=== PATIENT | female | born 1990 | race Caucasian/White ===

== ENCOUNTER 2017-08-17 19:01 | Emergency (ER) | payer OTHER ==
--- NOTE | 2017-08-17 20:08 | ER ---
Nurse's Notes [facility] Name: Olga Almeida Age: 26 yrs Sex: Female : 1990 Arrival Date: 08/17/2017 Time: 19:08 Bed 30 Private MD: Diagnosis: Dermatitis, unspecified Presentation: 08/17 19:09 Presenting complaint: Patient states: that for 2 1/2 weeks something has been biting fc her on the arms, legs and lower back. They are now swollen and itching. Getting worse. Transition of care: patient was not received from another setting of care. Onset of symptoms was July 2017. Risk Assessment: Do you want to hurt yourself or someone else? Patient reports no desire to harm self or others. Care prior to arrival: Anti itch spray. 19:09 Method Of Arrival: Ambulatory fc 19:09 Acuity: NAZIA 4 fc 19:54 Initial Sepsis Screen: Does the patient meet any 2 criteria? No. Patient's initial kr2 sepsis screen is negative. Does the patient have a suspected source of infection? No. Patient's initial sepsis screen is negative. 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 - Social history:: Smoking status: Patient/guardian denies using tobacco. - Ebola Screening: : Patient negative for fever greater than or equal to 101.5 degrees Fahrenheit, and additional compatible Ebola Virus Disease symptoms Patient denies exposure to infectious person Patient denies travel to an Ebola-affected area in the 21 days before illness onset. Screenin:53 Abuse screen: Denies threats or abuse. Denies injuries from another. Nutritional kr2 screening: No deficits noted. Tuberculosis screening: No symptoms or risk factors identified. Fall Risk None identified. Assessment: 19:52 General: Appears in no apparent distress. comfortable, well groomed, well developed, kr2 well nourished, Behavior is calm, cooperative, appropriate for age. Pain: Denies pain. Neuro: Level of Consciousness is awake, alert, obeys commands, Oriented to person, place, time, situation, Appropriate for age. Cardiovascular: Capillary refill < 3 seconds in bilateral fingers Patient's skin is warm and dry. Respiratory: Airway is patent Respiratory effort is even, unlabored, Respiratory pattern is regular, symmetrical. GI: Abdomen is round non-distended. : Denies burning with urination. Derm: Skin is healthy with good turgor, Skin is pink, warm \T\ dry. Rash noted that is red, raised. Musculoskeletal: Circulation, motion, and sensation intact. Vital Signs: 19:12 BP 131 / 71; Pulse 89; Resp 18; Temp 98.6(O); Pulse Ox 97% ; Weight 60.33 kg (R); fc Height 5 ft. 6 in. (167.64 cm) (R); Pain 0/10; 19:12 Body Mass Index 21.47 (60.33 kg, 167.64 cm) ED Course: 19:08 Patient arrived in ED. rg4 19:11 Triage completed. 19:11 Arm band placed on Patient placed in an exam room, on a stretcher. 19:15 Patient has correct armband on for positive identification. Bed in low position. Call kr2 light in reach. Side rails up X 1. Pulse ox on. NIBP on. 19:30 Noman Love MD is Attending Physician. 19:42 Sigrid Avitia, MARTIN is Primary Nurse. kr2 19:53 No provider procedures requiring assistance completed. Patient did not have IV access kr2 during this emergency room visit. 20:08 Edmond Gonzalez MD is Referral Physician. Administered Medications: No medications were administered Outcome: 19:54 Condition: good kr2 20:07 Discharge ordered by . gs 20:12 Discharged to home ambulatory, with family. kr2 20:12 Discharge instructions given to patient, Instructed on discharge instructions, follow up and referral plans. medication usage, Demonstrated understanding of instructions, follow-up care, medications, Prescriptions given X 1. 20:13 Patient left the ED. kr2 Signatures: Mariam Sousa RN RN [place] 4 Noman Love MD MD Sigrid Avitia RN RN kr2
--- NOTE | 2017-08-18 20:13 | EDPHYS ---
Physician Documentation [facility] Name: Olga Almeida Age: 26 yrs Sex: Female : 1990 Arrival Date: 08/17/2017 Time: 19:08 Bed 30 Private MD: ED Physician Noman Love HPI: 08/17 20:19 This 26 yrs old Female presents to ER via Ambulatory with complaints of Rash. gs 20:19 The patient's rash thought to be caused by insect bites, Dermatitis. The rash is gs located on the dorsal aspect of left forearm. The rash is located on the palmar aspect of right forearm. The rash can be described as macular, papular. Onset: The symptoms/episode began/occurred 2 week(s) ago, and became persistent. Associated signs and symptoms: Pertinent negatives: difficulty breathing, fever, swelling of throat. Severity of symptoms: At their worst the symptoms were moderate in the emergency department the symptoms are unchanged. The patient has experienced similar episodes in the past, a few times. 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 - Social history:: Smoking status: Patient/guardian denies using tobacco. - Ebola Screening: : Patient negative for fever greater than or equal to 101.5 degrees Fahrenheit, and additional compatible Ebola Virus Disease symptoms Patient denies exposure to infectious person Patient denies travel to an Ebola-affected area in the 21 days before illness onset. ROS: 20:19 All other systems are negative. gs Exam: 20:19 Head/Face: Normocephalic, atraumatic. Eyes: Pupils equal round and reactive to light, gs extra-ocular motions intact. Lids and lashes normal. Conjunctiva and sclera are non-icteric and not injected. Cornea within normal limits. Periorbital areas with no swelling, redness, or edema. ENT: Nares patent. No nasal discharge, no septal abnormalities noted. Tympanic membranes are normal and external auditory canals are clear. Oropharynx with no redness, swelling, or masses, exudates, or evidence of obstruction, uvula midline. Mucous membranes moist. Neck: Trachea midline, no thyromegaly or masses palpated, and no cervical lymphadenopathy. Supple, full range of motion without nuchal rigidity, or vertebral point tenderness. No Meningismus. Chest/axilla: Normal chest wall appearance and motion. Nontender with no deformity. No lesions are appreciated. Cardiovascular: Regular rate and rhythm with a normal S1 and S2. No gallops, murmurs, or rubs. Normal PMI, no JVD. No pulse deficits. Respiratory: Lungs have equal breath sounds bilaterally, clear to auscultation and percussion. No rales, rhonchi or wheezes noted. No increased work of breathing, no retractions or nasal flaring. Abdomen/GI: Soft, non-tender, with normal bowel sounds. No distension or tympany. No guarding or rebound. No evidence of tenderness throughout. Back: No spinal tenderness. No costovertebral tenderness. Full range of motion. MS/ Extremity: Pulses equal, no cyanosis. Neurovascular intact. Full, normal range of motion. Neuro: Awake and alert, GCS 15, oriented to person, place, time, and situation. Cranial nerves II-XII grossly intact. Motor strength 5/5 in all extremities. Sensory grossly intact. Cerebellar exam normal. Normal gait. 20:19 Constitutional: The patient appears alert, awake. 20:19 Abdomen/GI: Inspection: gravid appearance, is noted. 20:19 Skin: rash a moderate rash is noted, rash can be described as macular, papular, crusting, on the palmar aspect of right forearm and dorsal aspect of left forearm. Vital Signs: 19:12 BP 131 / 71; Pulse 89; Resp 18; Temp 98.6(O); Pulse Ox 97% ; Weight 60.33 kg (R); fc Height 5 ft. 6 in. (167.64 cm) (R); Pain 0/10; 19:12 Body Mass Index 21.47 (60.33 kg, 167.64 cm) fc MDM: 19:55 Patient medically screened. 20:19 Differential diagnosis: allergic reaction, dermatitis, insect bites. Data reviewed: vital signs, nurses notes. ED course: doesn't appear to be scabies not on flexor surfaces will try Benadryl topical steroid cream. Administered Medications: No medications were administered Disposition: 08/17/17 20:07 Discharged to Home. Impression: Dermatitis, unspecified. - Condition is Stable. - Discharge Instructions: Rash. - Prescriptions for Triamcinolone Acetonide 0.5 % Topical Cream - apply very thin layer 1 application by TOPICAL route 2 times per day As needed; 30 gram. - Medication Reconciliation Form, Thank You Letter, Antibiotic Education, Prescription Opioid Use form. - Follow up: Private Physician; When: 2 - 3 days; Reason: Re-evaluation by your physician. Follow up: Edmond Gonzalez MD; When: 2 - 3 days; Reason: Re-evaluation by your physician. Signatures: Mariam Sousa RN RN fc Noman Love MD MD Sigrid Avitia RN RN kr2 Corrections: (The following items were deleted from the chart) 20:08 20:07 08/17/2017 20:07 Discharged to Home. Impression: Dermatitis, unspecified. gs Condition is Stable. Forms are Medication Reconciliation Form, Thank You Letter, Antibiotic Education, Prescription Opioid Use. Follow up: Private Physician; When: 2 - 3 days; Reason: Re-evaluation by your physician. gs 20:13 20:08 08/17/2017 20:07 Discharged to Home. Impression: Dermatitis, unspecified. kr2 Condition is Stable. Discharge Instructions: Rash. Prescriptions for Triamcinolone Acetonide 0.5 % Topical Cream - apply 1 application by TOPICAL route 2 times per day As needed; 30 gram. and Forms are Medication Reconciliation Form, Thank You Letter, Antibiotic Education, Prescription Opioid Use. Follow up: Private Physician; When: 2 - 3 days; Reason: Re-evaluation by your physician. Follow up: Edmond Gonzalez; When: 2 - 3 days; Reason: Re-evaluation by your physician. gs
== END 2017-08-17 20:13 | disposition home or self-care (01) ==
LOC: ER 19:01
DX: L30.9 Dermatitis, unspecified (principal); Z33.1 Pregnant state, incidental
CPT/HCPCS: 99283

== ENCOUNTER 2018-09-05 18:44 | Emergency (ER) | payer OTHER ==
--- NOTE | 2018-09-05 20:25 | ER ---
Nurse's Notes [facility] Name: Olga Anglin Age: 27 yrs Sex: Female : 1990 Arrival Date: 09/05/2018 Time: 18:48 Bed 6 Private MD: Diagnosis: Acute pharyngitis Presentation: 09/05 18:58 Presenting complaint: Patient states: throat pain, possible strep. 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 Transition of care: patient was not received from another setting of care. Onset of symptoms is unknown. Risk Assessment: Do you want to hurt yourself or someone else? Patient reports no desire to harm self or others. Initial Sepsis Screen: Does the patient meet any 2 criteria? No. Patient's initial sepsis screen is negative. Does the patient have a suspected source of infection? No. Patient's initial sepsis screen is negative. Care prior to arrival: None. 18:58 Method Of Arrival: Ambulatory ak1 18:58 Acuity: NAZIA 4 ak1 Triage Assessment: 18:59 General: Appears in no apparent distress. Behavior is calm, cooperative. 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 - Social history:: Smoking status: Patient/guardian denies using tobacco. - Ebola Screening: : No symptoms or risks identified at this time. Screenin:00 Abuse screen: Denies threats or abuse. Nutritional screening: No deficits noted. ea Tuberculosis screening: No symptoms or risk factors identified. Fall Risk None identified. Assessment: 19:58 General: Appears in no apparent distress. Behavior is calm, cooperative, appropriate ea for age. Pain: Complains of pain in throat. Cardiovascular: Patient's skin is warm and dry. Respiratory: Airway is patent Respiratory effort is even, unlabored, Respiratory pattern is regular, symmetrical, Breath sounds are clear bilaterally. EENT: Throat has enlarged tonsils. Derm: Skin is dry, Skin is normal, Skin temperature is warm. 20:31 Reassessment: Patient and/or family updated on plan of care and expected duration. Pain ea level reassessed. Patient is alert, oriented x 3, equal unlabored respirations, skin warm/dry/pink. Discharge instruction given to patient verbalized the understanding of instruction. Pt left ED ambulatory, pt tolerating well. Vital Signs: 18:59 BP 118 / 54; Pulse 85; Resp 16; Temp 98; Pulse Ox 99% ; Weight 50.35 kg; Height 5 ft. 6 ak1 in. (167.64 cm); Pain 5/10; 20:36 BP 102 / 67; Pulse 60; Resp 18; Temp 98; Pulse Ox 99% ; ea 18:59 Body Mass Index 17.92 (50.35 kg, 167.64 cm) ak1 ED Course: 18:48 Patient arrived in ED. as 18:58 Triage completed. ak1 18:59 Arm band placed on Patient placed in waiting room, Patient notified of wait time. ak1 19:40 eKm Pagan MD is Attending Physician. tw4 19:58 Blanka Mei RN is Primary Nurse. ea 20:00 Patient has correct armband on for positive identification. Bed in low position. Call ea light in reach. Side rails up X2. 20:37 No provider procedures requiring assistance completed. Patient did not have IV access ea during this emergency room visit. Administered Medications: No medications were administered Outcome: 20:25 Discharge ordered by . tw4 20:37 Discharged to home ambulatory. ea 20:37 Condition: stable 20:37 Discharge instructions given to patient, Instructed on discharge instructions, follow up and referral plans. medication usage, Demonstrated understanding of instructions, follow-up care, medications. 20:37 Patient left the ED. ea Signatures: Ale Larkin Amber, RN RN ak1 Blanka Mei, RN RN ea Kem Pagan MD MD tw4
--- NOTE | 2018-09-05 20:26 | EDPHYS ---
Physician Documentation [facility] Name: Olga Anglin Age: 27 yrs Sex: Female : 1990 Arrival Date: 09/05/2018 Time: 18:48 Bed 6 Private MD: ED Physician Kem Pagan HPI: 09/05 19:58 This 27 yrs old Female presents to ER via Ambulatory with complaints of Sore tw4 Throat. 19:58 The patient presents with sore throat. The patient describes throat pain as burning. tw4 Onset: The symptoms/episode began/occurred today. Severity of symptoms: At their worst the symptoms were moderate, in the emergency department the symptoms are unchanged. Modifying factors: The symptoms are alleviated by nothing, the symptoms are aggravated by nothing. The patient has not experienced similar symptoms in the past. 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 - Social history:: Smoking status: Patient/guardian denies using tobacco. - Ebola Screening: : No symptoms or risks identified at this time. ROS: 19:58 Constitutional: Negative for fever, chills, and weight loss, Eyes: Negative for injury, tw4 pain, redness, and discharge. 19:58 Cardiovascular: Negative for chest pain, palpitations, and edema, Respiratory: Negative for shortness of breath, cough, wheezing, and pleuritic chest pain, Abdomen/GI: Negative for abdominal pain, nausea, vomiting, diarrhea, and constipation. 19:58 ENT: Positive for sore throat. Exam: 19:58 Constitutional: This is a well developed, well nourished patient who is awake, alert, tw4 and in no acute distress. Head/Face: Normocephalic, atraumatic. Chest/axilla: Normal chest wall appearance and motion. Nontender with no deformity. No lesions are appreciated. Cardiovascular: Regular rate and rhythm with a normal S1 and S2. No gallops, murmurs, or rubs. Normal PMI, no JVD. No pulse deficits. Respiratory: Lungs have equal breath sounds bilaterally, clear to auscultation and percussion. No rales, rhonchi or wheezes noted. No increased work of breathing, no retractions or nasal flaring. Abdomen/GI: Soft, non-tender, with normal bowel sounds. No distension or tympany. No guarding or rebound. No evidence of tenderness throughout. MS/ Extremity: Pulses equal, no cyanosis. Neurovascular intact. Full, normal range of motion. Neuro: Awake and alert, GCS 15, oriented to person, place, time, and situation. Cranial nerves II-XII grossly intact. Motor strength 5/5 in all extremities. Sensory grossly intact. Cerebellar exam normal. Normal gait. Vital Signs: 18:59 BP 118 / 54; Pulse 85; Resp 16; Temp 98; Pulse Ox 99% ; Weight 50.35 kg; Height 5 ft. 6 ak1 in. (167.64 cm); Pain 5/10; 20:36 BP 102 / 67; Pulse 60; Resp 18; Temp 98; Pulse Ox 99% ; ea 18:59 Body Mass Index 17.92 (50.35 kg, 167.64 cm) ak1 MDM: 19:41 Patient medically screened. tw4 19:58 Data reviewed: vital signs, nurses notes. Data interpreted: Pulse oximetry: tw4 Interpretation: normal. Counseling: I had a detailed discussion with the patient and/or guardian regarding: the historical points, exam findings, and any diagnostic results supporting the discharge/admit diagnosis. 20:23 Differential diagnosis: Allergic rhinitis, apthous stomatitis, peritonsillar abscess tw4 chlamydia pharyngitis. Special discussion: I discussed with the patient/guardian in detail that at this point there is no indication for admission to the hospital. It is understood, however, that if the symptoms persist or worsen the patient needs to return immediately for re-evaluation. 09/05 19:00 Order name: Strep; Complete Time: 20:24 rv 09/05 20:22 Interpretation: Abnormal. tw4 09/05 20:05 Order name: Throat Culture EDMS Administered Medications: No medications were administered Disposition: 09/05/18 20:25 Discharged to Home. Impression: Acute pharyngitis. - Condition is Stable. - Discharge Instructions: Pharyngitis. - Prescriptions for Amoxicillin 500 mg Oral Capsule - take 1 capsule by ORAL route every 8 hours for 10 days; 30 tablet. - Medication Reconciliation Form, Thank You Letter, Antibiotic Education, Prescription Opioid Use form. - Follow up: Private Physician; When: Upon discharge from the Emergency Department; Reason: If symptoms return, Recheck today's complaints, Continuance of care. - Problem is new. - Symptoms have improved. Signatures: Dispatcher [employer] EDStephanie Medina RN RN ak1 Blanka Mei RN RN ea Wadley, Terrence, MD MD tw4 Corrections: (The following items were deleted from the chart) 20:37 20:25 09/05/2018 20:25 Discharged to Home. Impression: Acute pharyngitis. Condition is ea Stable. Forms are Medication Reconciliation Form, Thank You Letter, Antibiotic Education, Prescription Opioid Use. Follow up: Private Physician; When: Upon discharge from the Emergency Department; Reason: If symptoms return, Recheck today's complaints, Continuance of care. Problem is new. Symptoms have improved. tw4
== END 2018-09-05 20:37 | disposition home or self-care (01) ==
LOC: ER 18:44
DX: J02.9 Acute pharyngitis, unspecified (principal); F32.9 Major depressive disorder, single episode, unspecified
CPT/HCPCS: 87070; 87081; 99281

== ENCOUNTER 2019-03-13 13:47 | Emergency (ER) | payer OTHER ==
[2019-03-13] MEDS ORDERED: METOCLOPRAMIDE 10 MG/2mL INJ ONE (15:35)
[2019-03-13] MEDS ORDERED: DIPHENHYDRAMINE 50 MG/ML VIAL ONE (15:36)
[2019-03-13] MEDS ORDERED: KETOROLAC 30 MG/ML INJ ONE (15:36)
[2019-03-13] MEDS ORDERED: NA CHLORIDE 0.9% 1,000 ML ONE (15:36)
--- NOTE | 2019-03-13 17:12 | ER ---
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 Transition of care: patient was not received from another setting of care. Onset of symptoms was March 06, 2019. Risk Assessment: Do you want to hurt yourself or someone else? Patient reports no desire to harm self or others. Initial Sepsis Screen: Does the patient meet any 2 criteria? No. Patient's initial sepsis screen is negative. Does the patient have a suspected source of infection? No. Patient's initial sepsis screen is negative. Care prior to arrival: None. 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 - Coronavirus screen:: The patient has NOT traveled to [place], [place], or [place] in the past 14 days. Proceed with normal triage process as indicated. - Social history:: Smoking status: Smoking status: Patient denies any tobacco usage or history of. - Ebola Screening: : Patient negative for fever greater than or equal to 101.5 degrees Fahrenheit, and additional compatible Ebola Virus Disease symptoms Patient denies exposure to infectious person Patient denies travel to an Ebola-affected area in the 21 days before illness onset No symptoms or risks identified at this time. Screenin:43 Abuse screen: Denies threats or abuse. Denies injuries from another. Nutritional sg screening: No deficits noted. Tuberculosis screening: No symptoms or risk factors identified. Never had TB. Fall Risk None identified. Assessment: 15:40 General: Appears in no apparent distress. well groomed, well developed, well nourished, sg Behavior is calm, cooperative, appropriate for age. Pain: Complains of pain in forehead Quality of pain is described as aching. Neuro: Level of Consciousness is awake, alert, obeys commands, Oriented to person, place, time, Facial symmetry appears normal. Cardiovascular: Heart tones S1 S2 present Capillary refill is brisk in bilateral fingers Patient's skin is warm and dry. Chest pain is denied. Respiratory: Airway is patent Respiratory effort is even, unlabored, Respiratory pattern is regular, symmetrical. GI: No signs and/or symptoms were reported involving the gastrointestinal system. : No signs and/or symptoms were reported regarding the genitourinary system. EENT: No signs and/or symptoms were reported regarding the EENT system. Derm: Skin is pink, warm \T\ dry. Musculoskeletal: Circulation, motion, and sensation intact. Range of motion: intact in all extremities. 15:58 Reassessment: Patient appears in no apparent distress at this time. Patient and/or sg family updated on plan of care and expected duration. Pain level reassessed. pt family at bedside at this time. Vital Signs: 14:29 BP 123 / 71; Pulse 103; Resp 16; Temp 98.1(O); Pulse Ox 100% on R/A; Weight 49.9 kg; iw Height 5 ft. 6 in. (167.64 cm); Pain 8/10; 14:29 Body Mass Index 17.75 (49.90 kg, 167.64 cm) iw ED Course: 13:48 Patient arrived in ED. rg4 14:29 Triage completed. iw 14:30 Arm band placed on. iw 14:44 Lew Huitron FNP-C is PHCP. la1 14:44 Jose Pink MD is Attending Physician. la1 15:02 Ilir Cooper, MARTIN is Primary Nurse. sg 15:31 Inserted saline lock: 20 gauge in right antecubital area, using aseptic technique. iw Blood collected. IV inserted by DAVID Luciano. 16:12 Lew Huitron FNP-C is PHCP. la1 16:13 Jose Pink MD is Attending Physician. la1 Administered Medications: 15:40 Drug: Benadryl 25 mg Route: IVP; Site: right antecubital; sg 15:40 Drug: TORadol - Ketorolac 15 mg Route: IVP; Site: right antecubital; sg 15:40 Drug: Reglan 10 mg Route: IVP; Site: right antecubital; sg 15:40 Drug: NS 0.9% 1000 ml Route: IV; Rate: 1000 ml; Site: right antecubital; sg Outcome: 17:11 Discharge ordered by MD. torrez 17:55 Patient left the ED. ca1 Signatures: Ilir Cooper RN RN sg Rut Lynch RN RN iw Lew Huitron, GLOST KILN OPERATOR-C GLOST KILN OPERATOR-Nidhi Vang Cheryl, RN RN ca1
--- NOTE | 2019-03-13 17:12 | EDPHYS ---
Physician Documentation [facility] Name: Olga Anglin Age: 28 yrs Sex: Female : 1990 Arrival Date: 03/13/2019 Time: 13:48 Bed 19 Private MD: ED Physician Jose Pink HPI: 03/13 15:28 This 28 yrs old Female presents to ER via Ambulatory with complaints of la1 Headache. 15:28 The patient complains of pain to the forehead and left base of the skull. The patient la1 describes the headache as aching, constant, throbbing. Onset: The symptoms/episode began/occurred 1 week(s) ago. Associated signs and symptoms: Pertinent positives: nausea, vomiting, Pertinent negatives: altered mental status, dizziness, fever, malaise, Photophobia vision changes, vision loss, weakness, vertigo. Severity of symptoms: At its worst the pain was moderate, in the emergency department the pain is unchanged. Headache History: The patient has had previous headaches and this one is similar to previous episodes, and this one is more severe than previous episodes. The patient has experienced similar episodes in the past. 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 - Coronavirus screen:: The patient has NOT traveled to [place], [place], or [place] in the past 14 days. Proceed with normal triage process as indicated. - Social history:: Smoking status: Smoking status: Patient denies any tobacco usage or history of. - Ebola Screening: : Patient negative for fever greater than or equal to 101.5 degrees Fahrenheit, and additional compatible Ebola Virus Disease symptoms Patient denies exposure to infectious person Patient denies travel to an Ebola-affected area in the 21 days before illness onset No symptoms or risks identified at this time. ROS: 15:28 Constitutional: Negative for fever, chills, and weight loss, Eyes: Negative for injury, la1 pain, redness, and discharge, ENT: Negative for injury, pain, and discharge, Neck: Negative for injury, pain, and swelling, Cardiovascular: Negative for chest pain, palpitations, and edema, Respiratory: Negative for shortness of breath, cough, wheezing, and pleuritic chest pain, Abdomen/GI: Negative for abdominal pain, nausea, vomiting, diarrhea, and constipation, Back: Negative for injury and pain, : Negative for injury, bleeding, discharge, and swelling, MS/Extremity: Negative for injury and deformity, Skin: Negative for injury, rash, and discoloration. 15:28 Neuro: Positive for headache. 15:28 Psych: Negative for drug dependence, alcohol dependence, auditory hallucinations, visual hallucinations. Exam: 15:30 Constitutional: This is a well developed, well nourished patient who is awake, alert, la1 and in no acute distress. Eyes: Pupils equal round and reactive to light, extra-ocular motions intact. Lids and lashes normal. Conjunctiva and sclera are non-icteric and not injected ENT: Nares patent. No nasal discharge, no septal abnormalities noted. Tympanic membranes are normal and external auditory canals are clear. Oropharynx with no redness, swelling, or masses, exudates, or evidence of obstruction, uvula midline. Mucous membranes moist. Neck: Trachea midline Chest/axilla: Normal chest wall appearance and motion. Nontender with no deformity. No lesions are appreciated. Cardiovascular: Regular rate and rhythm with a normal S1 and S2. Respiratory: Lungs have equal breath sounds bilaterally, clear to auscultation and percussion. Abdomen/GI: Soft, non-tender, with normal bowel sounds. MS/ Extremity: Pulses equal, no cyanosis. Neurovascular intact. Full, normal range of motion. Neuro: Awake and alert, GCS 15, oriented to person, place, time, and situation. Vital Signs: 14:29 BP 123 / 71; Pulse 103; Resp 16; Temp 98.1(O); Pulse Ox 100% on R/A; Weight 49.9 kg; iw Height 5 ft. 6 in. (167.64 cm); Pain 8/10; 14:29 Body Mass Index 17.75 (49.90 kg, 167.64 cm) iw MDM: 14:58 Patient medically screened. [facility] 17:06 Data reviewed: vital signs, nurses notes. Data interpreted: Pulse oximetry: on room air la1 is 100 %. Interpretation: normal. Counseling: I had a detailed discussion with the patient and/or guardian regarding: the historical points, exam findings, and any diagnostic results supporting the discharge/admit diagnosis, the need for outpatient follow up, a family practitioner, a neurologist, to return to the emergency department if symptoms worsen or persist or if there are any questions or concerns that arise at home. Response to treatment: the patient's symptoms have markedly improved after treatment, and as a result, I will discharge patient. Special discussion: Based on the patient's Hx, exam, and Dx evaluation, there is no indication for emergent surgery or inpatient Tx. It is understood by the patient/guardian that if the Sx's persist or worsen they need to return immediately for re-evaluation. 03/13 15:20 Order name: IV; Complete Time: 15:41 la1 Administered Medications: 15:40 Drug: Benadryl 25 mg Route: IVP; Site: right antecubital; sg 15:40 Drug: TORadol - Ketorolac 15 mg Route: IVP; Site: right antecubital; sg 15:40 Drug: Reglan 10 mg Route: IVP; Site: right antecubital; sg 15:40 Drug: NS 0.9% 1000 ml Route: IV; Rate: 1000 ml; Site: right antecubital; sg Disposition: 03/14 07:01 Co-signature as Attending Physician, Jose Pink MD I agree with the assessment and daljit plan of care. Disposition: 03/13/19 17:11 Discharged to Home. Impression: Headache. - Condition is Stable. - Discharge Instructions: General Headache Without Cause, Migraine Headache. - Work release form, Medication Reconciliation Form, Thank You Letter form. - Follow up: Private Physician; When: 2 - 3 days; Reason: Recheck today's complaints, Re-evaluation by your physician. - Problem is new. - Symptoms have improved. Signatures: Ilir Cooper RN RN sg Anderson, Corey, MD MD cha Williams, Irene, RN RN iw Lew Huitron, TELEVISION INSTALLER HELPER-C TELEVISION INSTALLER HELPER-Cla1 Georgia Lazo RN MARTIN ca1 Corrections: (The following items were deleted from the chart) 03/13 17:11 17:11 03/13/2019 17:11 Discharged to Home. Impression: Flexor tenosynovitis- Right la1 third finger. Condition is Stable. Forms are Medication Reconciliation Form, Thank You Letter, Antibiotic Education, Prescription Opioid Use. Follow up: Private Physician; When: 2 - 3 days; Reason: Recheck today's complaints, Re-evaluation by your physician. Problem is new. Symptoms have improved. la1 17:55 17:11 03/13/2019 17:11 Discharged to Home. Impression: Headache. Condition is Stable. ca1 Forms are Medication Reconciliation Form, Thank You Letter, Antibiotic Education, Prescription Opioid Use. Follow up: Private Physician; When: 2 - 3 days; Reason: Recheck today's complaints, Re-evaluation by your physician. Problem is new. Symptoms have improved. la1
[2019-03-13 18:03] VITALS: BP 123/71; TEMP 98.1; O2SAT 100
== END 2019-03-13 17:55 | disposition home or self-care (01) ==
LOC: ER 13:47
DX: R51 Headache (principal)
CPT/HCPCS: 96375; 96374; 99283; J2765; J1200; J7030

== ENCOUNTER 2019-10-26 10:27 | Emergency (ER) | payer BC ==
[2019-10-26 11:55] LABS: Absolute Lymphocytes (CBC) 1.5 K/uL (0.7-4.9); Basophils % 0.7 % (0-1.3); Hematocrit 38.7 % (36.0-45.0); Lymphocytes % 20.8 % (15.3-44.8); MPV 6.4 fL (7.6-11.3); RBC Red Blood Cell Count 4.44 M/uL (3.86-4.86)
[2019-10-26 12:16] LABS: Urine Bacteria <20 /HPF (<20); Urine Culture Reflex Order NOT NEEDED
[2019-10-26 12:18] LABS: BUN Blood Urea Nitrogen 12 mg/dL (7-18); Bicarbonate 31 mmol/L (21-32); Glucose Level 88 mg/dL (74-106); HCG, Quantitative 11 mIU/mL (1-3); Potassium 3.7 mmol/L (3.5-5.1); Sodium Level 141 mmol/L (136-145)
--- NOTE | 2019-10-26 13:03 | ER ---
Nurse's Notes [facility] Name: Olga Anglin Age: 29 yrs Sex: Female : 1990 Arrival Date: 10/26/2019 Time: 10:28 Bed 25 Private MD: Diagnosis: Threatened Presentation: 10/25 10:48 Chief complaint: Patient states: 4 weeks. Vaginal bleeding, light red, ca1 moderate x 2 days. Denies cramping. Coronavirus screen: Client denies travel out of the [place] in the last 14 days. At this time, the client does not indicate any symptoms associated with coronavirus-19. Ebola Screen: Patient negative for fever greater than or equal to 101.5 degrees Fahrenheit, and additional compatible Ebola Virus Disease symptoms Patient denies exposure to infectious person. Patient denies travel to an Ebola-affected area in the 21 days before illness onset. No symptoms or risks identified at this time. Initial Sepsis Screen: Does the patient meet any 2 criteria? No. Patient's initial sepsis screen is negative. Does the patient have a suspected source of infection? No. Patient's initial sepsis screen is negative. Risk Assessment: Do you want to hurt yourself or someone else? Patient reports no desire to harm self or others. Onset of symptoms was October 26, 2019. 10:48 Method Of Arrival: Ambulatory ca1 10:48 Acuity: NAZIA 3 ca1 BABCOCK TESTER: 10:51 LMP 09/24/2019 ca1 Historical: - Allergies: 10:51 No Known Allergies; ca1 - Home Meds: 10:51 None [Active]; ca1 - PMHx: 10:51 Depression; ca1 - PSHx: 10:51 Knee surgery; ca1 - Immunization history:: Adult Immunizations up to date. - Social history:: Smoking status: Patient denies any tobacco usage or history of. - Family history:: not pertinent. - Hospitalizations: : No recent hospitalization is reported. Screenin:30 Abuse screen: Denies threats or abuse. Denies injuries from another. Nutritional jl7 screening: No deficits noted. Tuberculosis screening: No symptoms or risk factors identified. Fall Risk IV access (20 points). Total Lanier Fall Scale indicates No Risk (0-24 pts). Assessment: 11:30 Obstetrical Assessment: General assessment: awake and alert. General: Appears in no jl7 apparent distress. uncomfortable, Behavior is calm, cooperative, appropriate for age. Pain: Denies pain. Neuro: Level of Consciousness is awake, alert, obeys commands, Oriented to person, place, time, situation. Cardiovascular: Patient's skin is warm and dry. Respiratory: Airway is patent Respiratory effort is even, unlabored, Respiratory pattern is regular, symmetrical. GI: No signs and/or symptoms were reported involving the gastrointestinal system. : Reports vaginal bleeding that is bright red. Derm: Skin is pink, warm \T\ dry. 12:59 Reassessment: Patient appears in no apparent distress at this time. Patient and/or ls4 family updated on plan of care and expected duration. Pain level reassessed. Patient is alert, oriented x 3, equal unlabored respirations, skin warm/dry/pink. Vital Signs: 10:48 BP 111 / 72; Pulse 100; Resp 16 S; Temp 98.1(TE); Pulse Ox 98% on R/A; Weight 48.08 kg ca1 (R); Height 5 ft. 7 in. (170.18 cm) (R); 10:48 Body Mass Index 16.60 (48.08 kg, 170.18 cm) ca1 ED Course: 10:28 Patient arrived in ED. ag5 10:50 Triage completed. ca1 10:51 Arm band placed on right wrist. ca1 11:21 Valerio Dooley, MARTIN is Primary Nurse. jl7 11:22 Saulo Ya MD is Attending Physician. rn 11:30 Patient has correct armband on for positive identification. Placed in gown. Bed in low jl7 position. Call light in reach. Side rails up X 1. 11:50 Initial lab(s) drawn, by hi, sent to lab. Inserted saline lock: 20 gauge in left em1 antecubital area, using aseptic technique. Blood collected. 11:55 Urine collected: clean catch specimen, clear. jl7 12:02 Radiology exam delayed due to lab results not completed at this time. (HCG) hr test not completed at this time. 12:06 Report given to MARTIN Sarmiento. jl7 12:55 Transvaginal Ob In Process Unspecified. EDMS Administered Medications: No medications were administered Outcome: 13:02 Discharge ordered by . rn 13:20 Discharged to home ambulatory. ls4 13:20 Condition: good 13:20 Discharge instructions given to patient, Instructed on discharge instructions, follow up and referral plans. safety practices, Demonstrated understanding of instructions, follow-up care. 13:20 Patient left the ED. ls4 Signatures: Dispatcher [employer] EDMS Melissa Dean Roman, MD MD rn To Larkin em1 Valerio Dooley RN RN jl7 Guillermina Zhou RN RN ls4 Georgia Lazo RN RN ca1 Cathi Moy 5
--- NOTE | 2019-10-26 13:03 | EDPHYS ---
Physician Documentation [facility] Name: Olga Anglin Age: 29 yrs Sex: Female : 1990 Arrival Date: 10/26/2019 Time: 10:28 Bed 25 Private MD: ED Physician Saulo Ya HPI: 10/25 12:57 This 29 yrs old Female presents to ER via Ambulatory with complaints of rn Vaginal Bleeding, + Preg <12wks. 12:57 The patient presents to the emergency department with vaginal bleeding. The estimated rn gestational age is 4 weeks. Previous pregnancies: in previous pregnancies patient has had. The patient has not experienced similar symptoms in the past. Reports approx 4 weeks , , presents with vaginal bleeding, in between spotting and regular period, no trauma, did have sex recently. No abd pain. . 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 - Social history:: Smoking status: Patient denies any tobacco usage or history of. - Family history:: not pertinent. - Hospitalizations: : No recent hospitalization is reported. ROS: 12:57 Constitutional: Negative for fever, chills, and weight loss, Cardiovascular: Negative rn for chest pain, palpitations, and edema, Respiratory: Negative for shortness of breath, cough, wheezing, and pleuritic chest pain, Abdomen/GI: Negative for abdominal pain, nausea, vomiting, diarrhea, and constipation, Back: Negative for injury and pain, : + vaginal bleeding MS/Extremity: Negative for injury and deformity, Skin: Negative for injury, rash, and discoloration, Neuro: Negative for headache, weakness, numbness, tingling, and seizure. Exam: 12:57 Constitutional: This is a well developed, well nourished patient who is awake, alert, rn and in no acute distress. Ambulatory to room without difficulty. Cardiovascular: Regular rate and rhythm. No pulse deficits. Respiratory: Speaking full sentences. Unlabored breathing. Abdomen/GI: soft, non-tender Skin: Warm, dry MS/ Extremity: Pulses equal, no cyanosis. Neuro: Awake and alert, GCS 15 Vital Signs: 10:48 BP 111 / 72; Pulse 100; Resp 16 S; Temp 98.1(TE); Pulse Ox 98% on R/A; Weight 48.08 kg ca1 (R); Height 5 ft. 7 in. (170.18 cm) (R); 10:48 Body Mass Index 16.60 (48.08 kg, 170.18 cm) ca1 MDM: 11:22 Patient medically screened. rn 13:01 Differential diagnosis: ectopic . Data reviewed: vital signs, nurses notes, exercise science internship test result(s), radiologic studies, ultrasound, and as a result, I will discharge patient. Counseling: I had a detailed discussion with the patient and/or guardian regarding: the historical points, exam findings, and any diagnostic results supporting the discharge/admit diagnosis, lab results, radiology results, the need for outpatient follow up, to return to the emergency department if symptoms worsen or persist or if there are any questions or concerns that arise at home. Special discussion: I discussed with the patient/guardian in detail that at this point there is no indication for admission to the hospital. It is understood, however, that if the symptoms persist or worsen the patient needs to return immediately for re-evaluation. ED course: Pt with beta hcg 11, nothing seen on u/s, no ectopic, possibly very early but just as likely to be miscarriage. Recommend OB f/u with repeat beta hcg to be sure. . 10/25 11:28 Order name: Quantitative Hcg; Complete Time: 12:52 rn 10/25 11:28 Order name: Abo/rh Typing; Complete Time: 13:00 rn 10/25 11:28 Order name: Basic Metabolic Panel; Complete Time: 12:52 rn 10/25 11:28 Order name: CBC with Diff; Complete Time: 12:52 rn 10/25 11:28 Order name: Urine Microscopic Only; Complete Time: 12:52 rn 10/25 11:49 Order name: Urine Dipstick--Ancillary (enter results) em1 10/25 11:28 Order name: Urine Test (obtain specimen); Complete Time: 11:50 rn 10/25 11:28 Order name: IV Saline Lock; Complete Time: 11:50 rn 10/25 11:28 Order name: Labs collected and sent; Complete Time: 11:50 rn 10/25 11:28 Order name: NPO; Complete Time: 11:50 rn 10/25 11:28 Order name: Urine Dipstick-Ancillary (obtain specimen); Complete Time: 11:50 rn 10/25 11:28 Order name: US Transvaginal Ob rn 10/25 11:49 Order name: Urine --Ancillary (enter results) em1 Administered Medications: No medications were administered Disposition: 10/26/19 13:02 Discharged to Home. Impression: Threatened . - Condition is Stable. - Discharge Instructions: Threatened Miscarriage, Vaginal Bleeding During , First Trimester, Pelvic Rest. - Medication Reconciliation Form, Thank You Letter, Antibiotic Education, Prescription Opioid Use form. - Follow up: Private Physician; When: 48 Hours; Reason: Recheck today's complaints, Repeat Beta-HCG (48 Hours), Re-evaluation by your physician. - Problem is new. - Symptoms have improved. Signatures: Dispatcher [employer] EDMS Fe Monroe Roman, MD MD rn Stewart, Lisa, RN RN ls4 Georgia Lazo RN RN ca1 Corrections: (The following items were deleted from the chart) 13:06 12:42 Labs - recollect needed ordered. bd ls4 13:20 13:02 10/26/2019 13:02 Discharged to Home. Impression: Threatened . Condition ls4 is Stable. Forms are Medication Reconciliation Form, Thank You Letter, Antibiotic Education, Prescription Opioid Use. Follow up: Private Physician; When: 48 Hours; Reason: Recheck today's complaints, Repeat Beta-HCG (48 Hours), Re-evaluation by your physician. Problem is new. Symptoms have improved. rn
--- NOTE | 2019-10-26 13:21 | RAD REPORT ---
EXAM DESCRIPTION: US - Transvaginal OB - 10/26/2019 12:57 pm CLINICAL HISTORY: VAGINAL BLEEDING, , beta HCG 11 COMPARISON: No comparisons FINDINGS: No gestational sac or sac remnant identified. Endometrial stripe is 4 mm with no hematoma, polyp or other endometrial abnormality. No myometrial mass. A mildly complex 12 millimeter left ovarian cyst is present. Both ovaries are normal size and show no rmal stroma blood flow pattern. No blood or fluid in the cul de sac. IMPRESSION: No gestational sac or sac remnant. No endometrial abnormality. No ovarian or adnexal significant finding. Follow-up imaging can be performed if serial beta HCG values indicate ongoing .
[2019-10-26 13:27] VITALS: BP 111/72; TEMP 98.1; O2SAT 98
[2019-10-26 15:42] LABS: Urine Blood 2+ (NEG); Urine Glucose NEGATIVE (NEG); Urine Protein NEGATIVE (NEG); Urine Specific Gravity 1.025 (1.005-1.030)
== END 2019-10-26 13:20 | disposition home or self-care (01) ==
LOC: ER 10:27
DX: O20.0 Threatened abortion (principal); Z3A.01 Less than 8 weeks gestation of pregnancy
CPT/HCPCS: 36415; 76817; 80048; 81003; 81015; 81025; 84702; 85025; 86900; 86901; 99283

== ENCOUNTER → 2022-01-13 | Day surgery (SDC) | payer SELFPAY ==
--- NOTE | 2022-01-14 10:02 | RAD REPORT ---
EXAM DESCRIPTION: US - Left Breast Core BX w/US Guidance - 01/13/2022 9:38 am CLINICAL HISTORY: N63.20 COMPARISON: Breast ultrasound 01/06/2022 TECHNIQUE: The patient presents for ultrasound-guided biopsy of a previously detailed 12-13 mm mass 11 o'clock left breast. The ultrasound-guided core biopsy procedure, risks and alternatives were discussed with the patient i n detail. After answering all questions, both oral and written consent were obtained. Time out proced ure was performed. The patient had no contraindicated allergy or medication history. Preliminary imaging identified the left breast mass. The left breast was prepped and draped in the us ual sterile fashion. From a(n) lateral approach, skin and deeper tissues were anesthetized with 1% li docaine. Patient had dense surrounding glandular tissue limiting movement of the biopsy needle. The m ass was difficult to fix in position and had a hard rubbery consistency. Under direct sonographic visualization a 14 gauge vacuum assisted core biopsy needle was advanced and placed at the margin of the mass. There were a total of 4 core biopsies obtained under direct sonogr aphic guidance. On the sonographic images, the biopsy needle did appear to traverse the mass; however , definitive defects in the mass from the biopsy needle could not be confirmed. Additionally, the bio psy cores appeared fatty. At the conclusion of the procedure a localization clip was placed under sonographic guidance. Post biopsy imaging showed no hematoma or measurable bleeding within the breast. Hemostasis was obtai german at the skin site with a sterile bandage placed. Post procedure care and precaution instructions were given to the patient. IMPRESSION: 1. Ultrasound-guided core biopsy was performed of the left breast mass. All obtained mat erial was given to pathology for histologic assessment. 2. Post biopsy localization clip was placed under ultrasound guidance. 3. As detailed above, the mass was difficult to fix in position. Due to the dense, rubbery consistenc y of the mass, the biopsy needle may have deflected from the mass into the immediately adjacent breas t tissue. If the final pathology report shows only fatty tissue or does not indicate a fibroadenoma o r other etiology to explain the mass, re-biopsy under ultrasound guidance or surgery biopsy could be performed.
== END ==
LOC: DS 08:00
PROVIDERS: ATTEND Surgery
PROC: 0H9U3ZX Drainage of Left Breast, Percutaneous Approach, Diagnostic (ICD-10-PCS; principal; 2022-01-13)
DX: N63.20 Unspecified lump in the left breast, unspecified quadrant (principal)
CPT/HCPCS: 19083; 88305